=== PATIENT | female | born 1950 | race Caucasian/White ===

== ENCOUNTER 2017-07-09 10:43 | Observation (INO) | payer MEDICARE ==
[~2017-07-09] VITALS: Ht 165.1 cm; Wt 82.6 kg
[2017-07-09] MEDS ORDERED: IRBE1TAB61 PO (11:28)
[2017-07-09] MEDS ORDERED: ESZO3TAB28 PO (11:28)
[2017-07-09] MEDS ORDERED: ALLO300T PO (11:28)
[2017-07-09] MEDS ORDERED: POTA20PA25 PO (11:28)
[2017-07-09 11:41] VITALS: BP 133/83
[2017-07-09] MEDS ORDERED: LACTATED RINGERS 1,000 ML IV SCH (11:50)
[2017-07-09] MEDS ORDERED: FENTANYL PF 100 MCG/2ML ONE ×2 (11:57→14:32)
[2017-07-09] MEDS ORDERED: MIDAZOLAM 1 MG/ML, 2ML ONE (11:57)
[2017-07-09] MEDS ORDERED: BUPIVACAINE/PF 0.5% ONE (11:59)
[2017-07-09] MEDS ORDERED: KETOROLAC 30 MG/1 ML ONE (12:34)
[2017-07-09] MEDS ORDERED: ONDANSETRON 2MG/ML, 2ML ONE (12:34)
[2017-07-09] MEDS ORDERED: PROPOFOL 10 MG/ML, 20ML ONE (12:34)
[2017-07-09] MEDS ORDERED: CEFAZOLIN 1,000 MG ONE (12:34)
[2017-07-09] MEDS ORDERED: DEXAMETHASONE 4 MG/ML, 1ML ONE (12:34)
[2017-07-09 12:44] LABS: BLOOD UREA NITROGEN 20 mg/dL (7-18)
[2017-07-09 12:54] LABS: ASPARTATE AMINO TRANSFERASE 52 U/L (15-37)
[2017-07-09] MEDS ORDERED: hydrALAzine 20 MG/ML, 1ML IV PRN (13:30)
[2017-07-09] MEDS ORDERED: PROMETHAZINE 25 MG/ML, 1ML IV PRN (13:30)
[2017-07-09] MEDS ORDERED: ONDANSETRON 2MG/ML, 2ML IVPush PRN (13:30)
[2017-07-09] MEDS ORDERED: LABETALOL 5MG/ML, 20ML IV PRN (13:30)
[2017-07-09] MEDS ORDERED: ACETAMINOPHEN 325 MG TABLET PO PRN (13:30)
[2017-07-09] MEDS ORDERED: HYDROmorphone 1 MG/ML, 1ML IV PRN (13:30)
[2017-07-09] MEDS ORDERED: FENTANYL PF 100 MCG/2ML IV PRN (13:30)
[2017-07-09] MEDS ORDERED: MEPERIDINE/PF 25MG/0.5ML IVPush PRN (13:30)
[2017-07-09] MEDS ORDERED: OXYcodone 5 MG/5 ML ORAL.SOL UDC PO PRN (13:30)
[2017-07-09] MEDS ORDERED: ACETAMINOPHEN 650 MG/20.3 ML UDC ONE (15:24)
[2017-07-09] MEDS ORDERED: MEPERIDINE/PF 25MG/0.5ML ONE (15:25)
[2017-07-09] MEDS ORDERED: ACETAMINOPHEN 325 MG TABLET ONE (15:25)
[2017-07-09] MEDS ORDERED: OXYcodone 5 MG/5 ML ORAL.SOL UDC ONE (15:25)
[2017-07-09] MEDS ORDERED: MORPHINE SULFATE 4 MG/ML, 1ML ONE (16:35)
[2017-07-09] MEDS ORDERED: morphine SULFATE/PF 0.5 MG/ML, 10ML IV PRN (17:00)
[2017-07-09] MEDS ORDERED: morphine SULFATE 10 MG/ML, 1ML IV PRN ×2 (17:00→17:30)
[2017-07-09] MEDS ORDERED: ONDANSETRON 2MG/ML, 2ML IV PRN (17:30)
[2017-07-09] MEDS ORDERED: PROMETHAZINE 25 MG/ML, 1ML IM PRN (17:30)
[2017-07-09] MEDS: LACTATED RINGERS 1,000 ML IV SCH (17:58)
[2017-07-09] MEDS: CEFAZOLIN PMX 1GM/50ML 50 ML IVPB SCH (17:58)
[2017-07-09 18:52] VITALS: BP 128/77
[2017-07-09] MEDS: HYDROcodone/APAP 10/325 MG TABLET PO PRN (20:45)
[2017-07-09] MEDS ORDERED: ESZOPICLONE PO SCH (21:00)
[2017-07-09] MEDS ORDERED: LUNESTA 3 MG PO SCH (21:00)
[2017-07-09 23:14] VITALS: BP 114/61
[2017-07-10] MEDS: CEFAZOLIN PMX 1GM/50ML 50 ML IVPB SCH (01:38)
[2017-07-10] MEDS: HYDROcodone/APAP 10/325 MG TABLET PO PRN ×2 (01:39→09:10)
[2017-07-10 03:31] VITALS: BP 106/62
[2017-07-10] MEDS: LACTATED RINGERS 1,000 ML IV SCH (05:29)
[2017-07-10 06:52] VITALS: BP 106/62
[2017-07-10] MEDS ORDERED: HYDR-882 PO (07:56)
[2017-07-10] MEDS ORDERED: HYDROCHLOROTHIAZIDE 12.5 MG CAPSULE PO SCH (09:00)
[2017-07-10] MEDS ORDERED: POTASSIUM CHLORIDE 20 MEQ TAB.ER.PRT PO SCH (09:00)
[2017-07-10] MEDS ORDERED: ALLOPURINOL 300 MG TABLET PO SCH (09:00)
[2017-07-10] MEDS ORDERED: LUNESTA 3 MG HOMEMEDPO SCH (21:00)
[2017-07-10] MEDS ORDERED: ESZOPICLONE HOMEMEDPO SCH (21:00)
== END 2017-07-10 10:05 | disposition home or self-care (01) ==
LOC: OUT 10:43 → 4NOR 17:02 → OUT 23:33
PROVIDERS: ADMIT Orthopaedic Surgery; ATTEND Orthopaedic Surgery
DX: S52.572A Other intraarticular fracture of lower end of left radius, initial encounter for closed fracture (principal); X58.XXXA Exposure to other specified factors, initial encounter; Y92.89 Other specified places as the place of occurrence of the external cause; Y93.89 Activity, other specified; Y99.8 Other external cause status
CPT/HCPCS: 25290; 25609; 36415; 73100; 76001; 80053; 93005; 96365; 96375; C1713; G0378; J0690; J1100; J1885; J2175; J2250; J2274; J2405; J2704; J3010; J3490; J7120